=== PATIENT | female | born 1970 | race Caucasian/White ===

== ENCOUNTER 2023-10-10 22:39 | Emergency (ER) | payer OTHER, SELFPAY ==
[2023-10-10 22:51] VITALS: BP 146/74; PULSE 76; RESP 18; TEMP 36.5; O2SAT 100; BMI 24.3
[2023-10-10 22:59] LABS: Basophils # 0.1 10^3/uL (0.0-0.1); Basophils % 0.9 %; Eosinophils # 0.3 10^3/uL (0.0-0.8); Eosinophils % 3.3 %; Hematocrit 38.7 % (36-47); Mean Corpuscular HGB Conc 32.6 g/dL (30-55); Mean Corpuscular Hemoglobin 28.4 pg (27-33); Mean Corpuscular Volume 87.4 fl (85-98); Mean Platelet Volume 11.4 fL (7.4-10.4); Monocytes # 1.1 10^3/uL (0.2-0.9); Monocytes % 10.6 %; Neutrophils # 5.46 10^3/uL (1.8-7.7); Neutrophils % 54.8 %; Nucleated Red Blood Cells % 0 %; Platelet Count 248 10^3/cmm (157-399); Red Blood Count 4.43 10^6/uL (3.85-5.65); Red Cell Distribution Width 14.7 % (12.1-15.1); White Blood Count 9.97 10^3/uL (3.29-11.43)
--- NOTE | 2023-10-10 23:05 | CTR_ITS ---
PROCEDURE INFORMATION: Exam: CT Abdomen And Pelvis Without Contrast Exam date and time: 10/10/2023 11:14 PM Age: 53 years old Clinical indication: Abdominal pain; Right; Prior surgery; Surgery date: 6+ months; Surgery type: Gastric. Gb. Bowel. Patient HX: Severe RT flank pain. ; Additional info: Right flank pain TECHNIQUE: Imaging protocol: Computed tomography of the abdomen and pelvis without contrast. Radiation optimization: All CT scans at this facility use at least one of these dose optimization techniques: automated exposure control; mA and/or kV adjustment per patient size (includes targeted exams where dose is matched to clinical indication); or iterative reconstruction. REPORTING DATA: Count of CT and Cardiac NM exams in prior 12 months: This patient has received 0 known CTs and 0 known cardiac nuclear medicine studies in the 12 months prior to the current study. COMPARISON: CR XR chest 2V* [id number] 12/14/2017 2:03 PM RADIATION DOSE METRICS: Total DLP (mGy-cm): 400.18 FINDINGS: Lungs: Clear. Liver: Unremarkable unenhanced appearance. Gallbladder and bile ducts: Cholecystectomy. Pancreas: Unremarkable unenhanced appearance. Spleen: Unremarkable. Adrenal glands: Unremarkable. Kidneys and ureters: 8 mm calculus in the right distal ureter with upstream moderate right hydroureteronephrosis. Few additional punctate nonobstructing calculi in the kidneys bilaterally. Mild right perinephric stranding. Stomach and bowel: Surgical changes of gastric bypass and sigmoidectomy. Multiple dilated air-filled loops of distal small bowel and air-filled dilated ascending and proximal transverse colon. Appendix: No evidence of appendicitis. Intraperitoneal space: No free air. No significant fluid collection. Vasculature: Limited evaluation without IV contrast. No aneurysm. Lymph nodes: No enlarged lymph nodes. Urinary bladder: Unremarkable as visualized. Reproductive: Unremarkable unenhanced appearance as visualized. Bones/joints: No acute fracture. Thoracolumbar spondylosis. Soft tissues: Mild body wall subcutaneous edema. CT/CT kidney stone [id number] IMPRESSION: 1. 8 mm right distal ureteral calculus with associated moderate right hydroureteronephrosis. 2. Few dilated air-filled loops of distal small bowel and air-filled mildly dilated ascending and proximal transverse colon. No discrete transition point to suggest high-grade bowel obstruction. Findings may represent ileus and/or enterocolitis.
--- NOTE | 2023-10-10 23:06 | ED_ITS ---
HPI - Abdominal Pain 2 General: Chief Complaint: Abdominal Pain Stated Complaint: right flank pain Time Seen by Provider: 10/10/23 22:43 Source: patient Mode of arrival: ambulatory Limitations: no limitations History of Present Illness: 53-year-old female states that she has b een having severe right-sided flank pain since last night that worsened tonight. Patient is tearful rates her pain a 10 out of 10 she had a kidney stone in the past states she has had no fever she has had vomiting states it feels like she has burning when she pees. Associated Symptoms: Denies chills, diarrhea, fever(s), nausea and vomiting Review of Systems 2 Const: Denies: fever(s), chills, body aches or change in appetite Eyes: Denies: blurry vision or eye discomfort ENMT: Denies: throat pain or dental pain Card: Denies: chest pain Resp: Denies: dyspnea GI: Denies: abdominal pain, nausea, vomiting or diarrhea : Reports: flank pain and difficulty voiding Musc: Denies: neck pain or back pain Skin/Breast: Denies: rash Neuro: Denies: headache(s) Physical Exam 2 Const: COMMON NORMALS: no acute distress, patient oriented x3 and healthy appearing HENMT: COMMON NORMALS: normocephalic and atraumatic HEAD & SCALP: n ormocephalic and atraumatic Neck/C-Spine: COMMON NORMALS: full ROM and supple Chest: COMMONS NORMALS: normal inspection of the chest and normal palpation of entire chest wall Resp: COMMON NORMALS: normal respiratory effort Cardio: COMMON NORMALS: regular rate, regular rhythm and No murmurs present (Cardio) RATE: regular rate RHYTHM: regular rhythm GI: COMMON NORMALS: Normal to inspection, nondistended, normoactive bowel sounds present, Soft to palpation, non-tender and no masses PALPATION: Yes Soft to palpation Extremity: COMMON NORMALS: normal to inspection and full ROM Neuro: COMMON NORMALS: patient oriented x3, moves all extremities and no focal motor deficits Psych: COMMON NORMALS: mental status grossly normal, Normal thought process present and cooperative THOUGHT PROCESS: Normal thought process present Skin: COMMON NORMALS: no rashes or lesions noted and no wounds GENERAL SKIN EXAM: no rashes or lesions noted Course 2 Vital Signs: Vital signs: Vital Signs Temperature 97.7 F 10/10/23 22:51 Pulse Rate 77 10/10/23 23:34 Respiratory Rate 15 10/11/23 00:07 Blood Pressure 145/91 10/10/23 23:34 Pulse Oximetry 96 10/11/23 00:07 Oxygen Delivery Me thod Room Air 10/11/23 00:07 MDM - Abdominal Pain Medical Decision Making Patient presents here with a kidney stone she has no signs of UTI her pain here is resolved we will prescribe her hydrocodone along with Zofran we will get her follow-up with urology she is return if worsening she understands agrees to plan. Medical Records I reviewed the patient's medical records. Lab Data I reviewed the patient's lab results. 10/10/23 22:48 10/10/23 22:48 Labs/Radiology: Radiology Impressions Abdomen/Pelvis CT 10/10/23 23:05 IMPRESSION: 1. 8 mm right distal ureteral calculus with associated moderate right hydroureteronephrosis. 2. Few dilated air-filled loops of distal small bowel and air-filled mildly dilated ascending and proximal transverse colon. No discrete transition point to suggest high-grade bowel obstruction. Findings may represent ileus and/or enterocolitis. Laboratory Results WBC 9.97 10^3/uL (3.29-11.43) 10/10/23 22:48 RBC 4.43 10^6/uL (3.85-5.65) 10/10/23 22:48 Hgb 12.60 g/dL (11.27-16.99) 10/10/23 22:48 Hct 38.7 % (36-47) 10/10/23 22:48 MCV 87.4 fl (85-98) 10/10/23 22:48 MCH 28.4 pg (27-33) 10/10/23 22:48 MCHC 32.6 g/dL (30-55) 10/10/23 22:48 RDW 14.7 % (12.1-15.1) 10/10/23 22:48 Plt Count 248 10^3/cmm (157-399) 10/10/23 22:48 MPV 11.4 fL (7.4-10.4) H 10/10/23 22:48 Neut % (Auto) 54.8 % 10/10/23 22:48 Lymph % (Auto) 30.0 % 10/10/23 22:48 Coffee % (Auto) 10.6 % 10/10/23 22:48 Eos % (Auto) 3.3 % 10/10/23 22:48 Baso % (Auto) 0.9 % 10/10/23 22:48 Neut # (Auto) 5.46 10^3/uL (1.8-7.7) 10/10/23 22:48 Lymph # (Auto) 3.0 10^3/uL (0.8-4.8) 10/10/23 22:48 Coffee # (Auto) 1.1 10^3/uL (0.2-0.9) H 10/10/23 22:48 Eos # (Auto) 0.3 10^3/uL (0.0-0.8) 10/10/23 22:48 Baso # (Auto) 0.1 10^3/uL (0.0-0.1) 10/10/23 22:48 Nucleated RBC % (auto) 0 % 10/10/23 22:48 Nucleated RBCs # 0.0 /100WBC 10/10/23 22:48 Sodium 141 mmol/L (136-145) 10/10/23 22:48 Potassium 3.2 mmol/L (3.5-5.1) L 10/10/23 22:48 Chloride 104 mmol/L (98-107) 10/10/23 22:48 Carbon Dioxide 29 mmol/L (22-29) 10/10/23 22:48 Anion Gap 11.2 (5-19) 10/10/23 22:48 BUN 16 mg/dL (6-20) 10/10/23 22:48 Creatinine 0.7 mg/dL (0.5-0.9) 10/10/23 22:48 GFR Calculation 88.2 mL/min (90-130) L 10/10/23 22:48 Glucose 101 mg/dL (65-115) 10/10/23 22:48 Calculated Osmolality 293 mOsm/kg (285-295) 10/10/23 22:48 Calcium 9.7 mg/dL (8.5-10.5) 10/10/23 22:48 Total Bilirubin 0.3 mg/dL (0.15-1.2) 10/10/23 22:48 AST 22 U/L (0-32) 10/10/23 22:48 ALT 31 U/L (0-33) 10/10/23 22:48 Alkaline Phosphatase 103 U/L (35-105) 10/10/23 22:48 Total Protein 6.8 g/dL (6.6-8.7) 10/10/23 22:48 Albumin 4.4 g/dL (3.5-5.2) 10/10/23 22:48 Globulin 2.4 g/dL (1.3-4.6) 10/10/23 22:48 Lipase 14 U/L (13-60) 10/10/23 22:48 Urine Color Yellow (Yellow) 10/11/23 00:04 Urine Appearance Cloudy (CLEAR) A 10/11/23 00:04 Urine pH 5 (5-7) 10/11/23 00:04 Ur Specific [place] 1.025 (1.005-1.030) 10/11/23 00:04 Urine Protein 1+ (Negative) H 10/11/23 00:04 Urine Glucose (UA) Trace (Normal) H 10/11/23 00:04 Urine Ketones 1+ (Negative) H 10/11/23 00:04 Urine Blood 3+ (Negative) H 10/11/23 00:04 Urine Nitrate Negative (Negative) 10/11/23 00:04 Urine Bilirubin 1+ (Negative) H 10/11/23 00:04 Urine Urobilinogen 1 mg/dL (Negative) H 10/11/23 00:04 Ur Leukocyte Esterase 1+ (Negative) H 10/11/23 00:04 Urine RBC 25-40 /hpf (0-2) H 10/11/23 00:04 Urine WBC 15-25 /hpf (0-5) H 10/11/23 00:04 Ur Squamous Epith Cells 5-10 /hpf (0-5) H 10/11/23 00:04 Calcium Oxalate Crystal 5-10 /hpf H 10/11/23 00:04 Amorphous Sediment 1+ /hpf 10/11/23 00:04 Urine Bacteria 1+ /hpf (NONE) H 10/11/23 00:04 Hyaline Casts 0-4 /lpf H 10/11/23 00:04 Urine Mucus 1+ /hpf 10/11/23 00:04 All radiology interpretation(s) finalized by discharge Discharge Plan Discharge Patient Disposition: Home Clinical Impression: Kidney stone Condition: Stable Prescriptions: New hydrocodone-acetaminophen 5-325 mg tablet 1 tab PO Q6H PRN (Reason: pain) Qty: 14 0RF ondansetron 4 mg tablet,disintegrating 4 mg PO Q6H PRN (Reason: nausea and vomiting) Qty: 14 0RF tamsulosin [Flomax] 0.4 mg capsule 0.4 mg PO DAILY Qty: 5 0RF Discharge Orders: Discharge ED (Routine); Ordered 10/11/23 Ordered By: Claire Mclain Referrals: Sabine Hurst DO [Primary Care Provider] - Discharge Diet: Advance as tolerated Discharge Activity: Resume usual activity Patient Instructions: Kidney Stones (ED), Opioid Safety Coding Level of Care Code ED Human Resource Consultant for Nilda Duvall
[2023-10-10 23:15] LABS: Alanine Aminotransferase 31 U/L (0-33); Albumin Level 4.4 g/dL (3.5-5.2); Alkaline Phosphatase 103 U/L (35-105); Anion Gap 11.2 (5-19); Aspartate Amino Transferase 22 U/L (0-32); Blood Urea Nitrogen 16 mg/dL (6-20); Calcium 9.7 mg/dL (8.5-10.5); Carbon Dioxide 29 mmol/L (22-29); Chloride 104 mmol/L (98-107); Creatinine Clr Calc Pharmacy 87.9341; Globulin 2.4 g/dL (1.3-4.6); Glomerular Filtration Rate 88.2 mL/min (90-130); Glucose 101 mg/dL (65-115); Lipase 14 U/L (13-60); Osmolality Calculated 293 mOsm/kg (285-295); Potassium 3.2 mmol/L (3.5-5.1); Sodium 141 mmol/L (136-145); Total Bilirubin 0.3 mg/dL (0.15-1.2); Total Protein 6.8 g/dL (6.6-8.7)
[2023-10-10 23:30] VITALS: RESP 25; O2SAT 99
[2023-10-10] MEDS: sodium chloride 0.9% 1,000 ML 999 ML IV (23:30)
[2023-10-10] MEDS: HYDROmorphone 1 mg/mL INJ 1 mL IVP (23:30)
[2023-10-10] MEDS: ketorolac 30 mg/mL INJ 15 MG IVP (23:31)
[2023-10-10] MEDS: ondansetron 2 mg/ML SDV 2 mL 4 MG IVP (23:31)
[2023-10-10 23:34] VITALS: BP 145/91; PULSE 77; RESP 20; O2SAT 98
--- NOTE | 2023-10-11 00:06 | PC.NURSE ---
pt was able to urinate small amount @0006
[2023-10-11 00:07] VITALS: RESP 15; O2SAT 96
[2023-10-11 00:20] LABS: Bilirubin Urine 1+ (Negative); Blood Urine 3+ (Negative); Glucose Urine UA Trace (Normal); Ketones Urine 1+ (Negative); Leukocyte Esterase Urine 1+ (Negative); Nitrate Urine Negative (Negative); Protein Urine 1+ (Negative); Specific Gravity, Urine 1.025 (1.005-1.030); Urine Appearance Cloudy (CLEAR); Urine Color Yellow (Yellow); Urobilinogen Urine 1 mg/dL (Negative); pH Urine 5 (5-7)
[2023-10-11 00:21] LABS: Add Urine Microscopic? YES
[2023-10-11 00:22] LABS: RBC Urine 25-40 /hpf (0-2); WBC Urine 15-25 /hpf (0-5)
[2023-10-11 00:25] LABS: Add Urine Culture? Yes; Amorphous Sediment Urine 1+ /hpf; Bacteria Urine 1+ /hpf; Hyaline Casts Urine 0-4 /lpf; Mucus Urine 1+ /hpf
--- NOTE | 2023-10-11 00:39 | PC.NURSE ---
Pt was sent home with 2tabs 5/[address] [place] [address] Mclain orders.
[2023-10-11 00:48] VITALS: BP 112/60; PULSE 79; RESP 16; O2SAT 96
--- NOTE | 2023-10-12 09:07 | DCPLANNER ---
I attempted to call patient on 10/12 at 0905am to find out where she would like her urology referral sent to. NO answer and I left a voicemail
--- NOTE | 2023-11-15 11:41 | DCPLANNER ---
I attempted to call patient on 11/15/23 at 1040 am. I spoke with Teressa santana daughter and she stated that Mrs. Keane already had an appointment and surgery with [facility] and no longer needs a referral
== END 2023-10-11 00:46 | disposition home or self-care (01) ==
PROVIDERS: Emergency Provider Emergency Medicine; PCP Family Medicine
DX: N13.2 Hydronephrosis with renal and ureteral calculous obstruction (principal)
CPT/HCPCS: 36415; 74176; 80053; 81001; 83690; 85025; 87086; 96361; 96374; 96375; 99285; J1170; J1885; J2405; J7030